=== PATIENT | female | born 1970 | race Two or more races ===

== ENCOUNTER 2017-05-28 08:34 | Emergency (ER) | payer SELFPAY ==
[2017-05-28 08:41] VITALS: BP 159/79; BMI 30.2
--- NOTE | 2017-05-28 09:16 | DR.GENAD ---
HPI - PCP Primary Care Physician: NFD - Complaint/Symptoms Chief Complaint Doctors Comments: Patient presents for evaluation of left lower quadrant pain that she has had for several weeks. She had been evaluated by the [facility] treated with non steroidal and prednisone and was seen At [facility] last week; treated with non-steroidal. Patient states that the pain is sharp, moderate in severity exacerbated by pressure. Duration of pain is two-three weeks. She denies trauma of fever. Chief Complaint:: PATIENT STATES THAT SHE FEELS LIKE SHE HAS CHEST PAIN AND HER FOOD IS GETTING STUCK. PATIENT STATED THAT THIS HAS BEEN GOING ON SINCE SATURDAY. SHE WENT TO [facility] AND THEY GAVE HER STERIODS AND NAPROXYEN BUT NOW IT HAS WORSENED AND HER FACE HAS BROKE OUT - Source History Provided: Patient, Family Member - Mode of Arrival Mode of Arrival: Ambulatory - Timing Onset of Chief Complaint: 05/25/17 PMH - PMH Past Medical History: No Past Surgical History: Yes Surgical History: - Family History History of Family Medical Conditions: No - Social History Does patient currently use any type of tobacco product: No Have you used tobacco products in the last 12 months: No Type of Tobacco Use: None Does any household member use tobacco: No Alcohol Use: None Do you use any recreational Drugs:: No Lives With: Family Lives Where: Home - infectious screening In the last 2 months have you had wt loss of >10#?: NO Have you had fever, night sweats or hemotysis?: No Have you traveled outside the country in the last 6 months?: No Isolation: Standard ROS - Review of Systems Eyes: No Symptoms Reported ENTM: No Symptoms Reported Respiratoy: No Symptoms Reported Cardiovascular: No Symptoms Reported Gastrointestinal/Abdominal: No Symptoms Reported Genitourinary: No Symptoms Reported Neurological: No Symptoms Reported Musculoskeletal: No Symptoms Reported Integumentary: No Symptoms Reported Hematologic/Lymphatic: No Symptoms Reported Endocrine: No Symptoms Reported Psychiatric: No Symptoms Reported All Other Systems: Reviewed and Negative PE - Vital Signs Vitals: Temperature 98.5 F Pulse Rate 77 Respiratory Rate 20 Blood Pressure 159/79 O2 Sat by Pulse Oximetry 99 - General Limitations: No Limitations General Appearance: Alert, In No Apparent Distress - Head Head Exam: Normal Inspection, Atraumatic - Eyes Eye exam: Normal Appearance, PERRL, EOMI - ENT ENT Exam: Normal Exam External Ear Exam: Normal External Inspection TM/Canal Exam: Bilateral Normal Nose Exam: Normal Nose Exam Mouth Exam: Normal Inspection Throat Exam: Normal Inspection - Neck Neck Exam: Normal Inspection, Full ROM - Chest Chest Inspection: Normal Inspection, Tenderness (Left subcostal area) - Respiratory Respiratory Exam: Normal Lung Sounds Bilat Respiratory Exam: Bilateral Clear to Auscultation - Cardiovascular Cardiovascular Exam: Regular Rate, Normal Rhythm - Abdominal Exam Abdominal Exam: Normal Inspection, Normal Bowel Sounds Abdominal Tenderness: LUQ (tenderness) - Extremities Extremities Exam: Normal Inspection, Full ROM - Back Back Exam: Normal Inspection, Full ROM - Neurologic Neurological Exam: Alert, Oriented X3, CN II-XII Intact - Psychiatric Psychiatric Exam: Normal Affect, Normal Mood - Skin Skin Exam: Warm, Dry, Intact Course - Education/Counseling Education/Counseling: Patient Educated On: Treatment, Diagnosis, Prognosis, Needs for Follow Up ROR - Labs Reviewed Result Diagrams: 05/28/17 09:25 05/28/17 09:25 Laboratory: WBC 6.3 X10^3/uL (3.6-10.0) 05/28/17 09:25 RBC 4.86 X10^6/uL (3.5-5.4) 05/28/17 09:25 Hgb 11.3 g/dL (12.0-16.0) L 05/28/17 09:25 Hct 35.0 % (36.0-47.0) L 05/28/17 09:25 MCV 71.9 fL (80.0-100.0) L 05/28/17 09:25 MCH 23.3 pg (27.0-34.0) L 05/28/17 09:25 MCHC 32.4 g/dL (33.0-35.0) L 05/28/17 09:25 RDW 18.1 % (11.6-16.5) H 05/28/17 09:25 Plt Count 262 X10^3/uL (150.0-450.0) 05/28/17 09:25 Plt Count Comment Adequate (ADEQUATE) 05/28/17 09:25 MPV 7.8 fL (7.4-11.0) 05/28/17 09:25 Neut % 59.6 % (42.0-75.0) 05/28/17 09:25 Lymph % 27.9 % (21.0-51.0) 05/28/17 09:25 [place] % 8.0 % (0.0-13.0) 05/28/17 09:25 Eos % 4.1 % (0.9-2.9) H 05/28/17 09:25 Baso % 0.4 % (0.2-1.0) 05/28/17 09:25 Neut # 3.8 x10^3/uL (2.2-4.8) 05/28/17 09:25 Lymph # 1.8 X10^3/uL (1.3-2.9) 05/28/17 09:25 [place] # 0.5 x10^3/uL (0.3-0.8) 05/28/17 09:25 Eos # 0.3 x10^3/uL (0.0-0.2) H 05/28/17 09:25 Baso # 0.0 X10^3/uL (0.0-0.1) 05/28/17 09:25 Absolute Nucleated RBC 0.1 /100WBC 05/28/17 09:25 Plt Morphology Comment Normal (NORMAL) 05/28/17 09:25 RBC Morphology Abnormal (NORMAL) A 05/28/17 09:25 Hypochromasia 1+ A 05/28/17 09:25 Sodium 137 mmol/L (136-145) 05/28/17 09:25 Corrected Sodium TNP 05/28/17 09:25 Potassium 4.1 mmol/L (3.5-5.1) 05/28/17 09:25 Chloride 103 mmol/L (98-107) 05/28/17 09:25 Carbon Dioxide 25.1 mmol/L (21-32) 05/28/17 09:25 BUN 12 mg/dL (7-18) 05/28/17 09:25 Creatinine 0.67 mg/dL (0.55-1.02) 05/28/17 09:25 Est GFR (MDRD) Af Amer > 60 (>60) 05/28/17 09:25 Est GFR (MDRD) Non-Af > 60 (>60) 05/28/17 09:25 Glucose 95 mg/dL (65-99) 05/28/17 09:25 Calcium 8.5 mg/dL (8.5-10.1) 05/28/17 09:25 Corrected Calcium TNP 05/28/17 09:25 Total Bilirubin 0.50 mg/dL (0.2-1.0) 05/28/17 09:25 AST 26 Units/L (15-37) 05/28/17 09:25 ALT 91 Units/L (12-78) H 05/28/17 09:25 Alkaline Phosphatase 86 Units/L (46-116) 05/28/17 09:25 C-Reactive Protein 6.10 mg/L (0-3.0) H 05/28/17 09:25 Total Protein 7.5 g/dL (6.4-8.2) 05/28/17 09:25 Albumin 3.6 g/dL (3.4-5.0) 05/28/17 09:25 Globulin 3.9 g/dL (2.5-4.5) 05/28/17 09:25 Albumin/Globulin Ratio 0.9 Ratio (1.1-2.1) L 05/28/17 09:25 Amylase 73 Units/L (25-115) 05/28/17 09:25 Lipase 143 Units/L (73-393) 05/28/17 09:25 - XRAY XRAY Interpreted by: Radiologist (CT Abd/pelv: 1 Diverticulosis without evidence of diverticulitis 2.Mild fatty infiltration of liver 3.Probable cyst and scarring in the right kidney (follow up ultrasound recommended) 4.Probable leiomyomas within the uterus and possible large nabothian cyst.) - Diagnosis Discharge Problem: Fatty liver, mild focal scarring of right kidney, small hiatal hernia, Nabothian (gland) cyst or follicle Diverticulosis Qualifiers: Diverticulosis site: diverticulosis of large intestine Diverticulosis bleeding : diverticulosis without bleeding Qualified Code(s): K57.30 - Diverticulosis of large intestine without perforation or abscess without bleeding - Discharge Plan Condition: Stable - Follow ups/Referrals Follow ups/Referrals: NFD,None [Primary Care Provider] - 3 days - Instructions
[2017-05-28 09:31] LABS: BASOPHILS % (AUTO) 0.4 % (0.2-1.0); EOSINOPHILS # (AUTO) 0.3 x10^3/uL (0.0-0.2); EOSINOPHILS % (AUTO) 4.1 % (0.9-2.9); HEMOGLOBIN 11.3 g/dL (12.0-16.0); LYMPHOCYTES # (AUTO) 1.8 X10^3/uL (1.3-2.9); LYMPHOCYTES % (AUTO) 27.9 % (21.0-51.0); MEAN CORPUSCULAR HEMOGLOBIN 23.3 pg (27.0-34.0); MEAN CORPUSCULAR HGB CONC 32.4 g/dL (33.0-35.0); MEAN CORPUSCULAR VOLUME 71.9 fL (80.0-100.0); MEAN PLATELET VOLUME 7.8 fL (7.4-11.0); MONOCYTES # (AUTO) 0.5 x10^3/uL (0.3-0.8); NEUTROPHILS # (AUTO) 3.8 x10^3/uL (2.2-4.8); NEUTROPHILS % (AUTO) 59.6 % (42.0-75.0); PLATELET COUNT 262 X10^3/uL (150.0-450.0); RED BLOOD COUNT 4.86 X10^6/uL (3.5-5.4); RED CELL DISTRIBUTION WIDTH 18.1 % (11.6-16.5); WHITE BLOOD COUNT 6.3 X10^3/uL (3.6-10.0)
[2017-05-28 09:41] LABS: AMYLASE 73 Units/L (25-115); LIPASE 143 Units/L (73-393)
[2017-05-28 09:49] LABS: ALANINE AMINOTRANSFERASE 91 Units/L (12-78); ALBUMIN 3.6 g/dL (3.4-5.0); ALKALINE PHOSPHATASE 86 Units/L (46-116); ASPARTATE AMINO TRANSFERASE 26 Units/L (15-37); BLOOD UREA NITROGEN 12 mg/dL (7-18); CALCIUM 8.5 mg/dL (8.5-10.1); CARBON DIOXIDE 25.1 mmol/L (21-32); CHLORIDE 103 mmol/L (98-107); CREATININE 0.67 mg/dL (0.55-1.02); SODIUM 137 mmol/L (136-145); TOTAL PROTEIN 7.5 g/dL (6.4-8.2); eGFR BLACK RACES > 60 (>60); eGFR NON BLACK RACES > 60 (>60)
[2017-05-28 09:51] LABS: PLATELET MORPHOLOGY COMMENT NORMAL (NORMAL)
[2017-05-28 09:52] LABS: HYPOCHROMASIA 1+
--- NOTE | 2017-05-28 11:31 | CT ---
HISTORY: Left upper quadrant pain Study: Computed tomography of the abdomen and pelvis: Multiple axial images were obtained throughou t the abdomen and pelvis. Intravascular contrast was not administered. Oral contrast was not admini stered. Radiation dose reduction techniques utilized. Comparison: None Findings: The lung bases are clear . No evidence of pleural effusions, parenchymal infiltrates or pulmonary no dules are identified. The heart size is normal. No appreciable coronary arterial calcification is n oted. A small hiatal hernia is present. Mild fatty infiltration of the liver is noted. The gallbladder is normal in its appearance. No evid ence biliary duct dilatation is present. The pancreas is normal in its appearance. The spleen is no rmal. The adrenal glands are normal. Mild focal scarring is noted in several areas of the right kid red. The left kidney appears normal. No evidence of hydronephrosis is noted. There appears to be a hypodense lesion within the anterior cortex of the right kidney, possibly a cyst measuring 19 mm in maximum dimension. Follow-up ultrasound is recommended. No evidence of an abdominal aortic aneurysm is noted. A small hiatal hernia is present. Mild diastasis of the linea alba is noted. The uterus is present and mildly inhomogeneous. There is a hypodense lesion within the lower uterine segment/u pper cervix measuring approximately 2.4 cm in maximum dimension, possibly a nabothian cyst versus a l eiomyoma. There may be a centrally located leiomyoma as well. The ovaries per CT criteria are mason l. No evidence of free pelvic fluid is noted. The urinary bladder is normal. No evidence of pelvic adenopathy is present. The stomach is nondistended. The duodenum is normal. The small bowel is normal. No evidence of mes enteric adenopathy is identified. The appendix is normal. The cecum is normal. The ascending colon shows a couple diverticular. The transverse colon shows a couple of diverticular. The descending c olon is normal with a couple diverticular. The sigmoid colon is moderately redundant with a few scat tered diverticular. I see no evidence of diverticulitis. Examination of the bone windows demonstrates minimal thoracic and lumbar spondylosis. The vertebral bodies and intervertebral disc spaces are of normal height. IMPRESSION: 1. Diverticulosis without evidence of diverticulitis. 2. Mild fatty infiltration of the liver. 3. Probable cyst and scarring in the right kidney. Follow-up ultrasound recommended. 4. Probable leiomyomas within the uterus and possible large nabothian cyst. Reported By:
== END 2017-05-28 12:13 | disposition home or self-care (01) ==
LOC: ER 08:47
DX: K76.0 Fatty (change of) liver, not elsewhere classified (principal); N28.89 Other specified disorders of kidney and ureter; K44.9 Diaphragmatic hernia without obstruction or gangrene; N88.8 Other specified noninflammatory disorders of cervix uteri; K57.30 Diverticulosis of large intestine without perforation or abscess without bleeding
CPT/HCPCS: 36415; 74176; 80053; 82150; 83690; 85025; 86140; 96365; 96374; 99282; 99283; A4222